=== PATIENT | female | born 1950 | race Caucasian/White ===

== ENCOUNTER → 2018-03-30 | Outpatient (CLI) | payer MEDICARE ==
[~2018-03-30] MED LIST: ACET-1966 PO; ACET500T68 PO; AMOX-559 PO; AZIT-18; GABA-549 PO; GLIM1TAB25; GLIM2TAB42 PO; HYDR2TAB74 PO; IBUP-56 PO; LEVO175T42; LEVO200T50 PO; LEVO25TA61 PO; LORA10CA3 PO; MELA3TAB31 PO; METF-411; METF-421 PO; NOR10 PO; PER PO; PRED20TA6 PO; PRIM50TA; RIV10 PO; SIMV-49 PO; VENL37.514 FT; [UNRECOGNIZED DRUG - OTHER] PO; oxygen
== END ==
LOC: RESP 20:09
PROVIDERS: ATTEND Family Medicine
DX: G47.33 Obstructive sleep apnea (adult) (pediatric) (principal); G47.61 Periodic limb movement disorder; G47.36 Sleep related hypoventilation in conditions classified elsewhere

== ENCOUNTER → 2018-08-23 | Outpatient (CLI) | payer MEDICARE ==
[~2018-08-23] MED LIST changes: -METF-411; -METF-421 PO; +METF-450; +METF-452 PO
--- NOTE | 2018-08-24 09:58 | RADIOLOGY IMAGING REPORT ---
FACILITY: [facility] [place] PATIENT NAME: SONAM IWLLIAMSON : [id number] MR: [id number] V: [id number] EXAM DATE: ORDERING PHYSICIAN: DELMY DAY TECHNOLOGIST: Lisa Kirby PROCEDURE:BILATERAL DIGITAL SCREENING MAMMOGRAM WITH CAD ASSISTED INTERPRETATION & 3D TOMOSYNTHESIS COMPARISON:Prior mammograms 07/27/17, 05/13/16, 05/12/15, 10/04/13, 09/28/12. INDICATIONS:SCREENING FINDINGS: The breasts are almost entirely fatty. The parenchymal pattern has remained stable allowing for difference in mammographic technique & patient positioning. DIAGNOSTIC CATEGORY 1--NEGATIVE. RECOMMENDATIONS: ROUTINE MAMMOGRAM AND CLINICAL EVALUATION. IMPRESSION: BIRADS 1: Negative. No significant abnormality is seen. Dictated by: Tiara Garcia M.D. on 08/23/2018 at 16:40 Transcribed by: ROMMEL on 08/24/2018 at 8:53 Approved by: Tiara Garcia M.D. on 08/24/2018 at 9:57 [facility]
== END ==
LOC: MAMO 00:19
PROVIDERS: ATTEND Family Medicine
DX: Z12.31 Encounter for screening mammogram for malignant neoplasm of breast (principal)
CPT/HCPCS: 77063; 77067

== ENCOUNTER → 2018-12-17 | Outpatient (CLI) | payer MEDICARE ==
--- NOTE | 2018-12-17 16:48 | EKG ---
FACILITY: [facility] PATIENT NAME: SONAM WILLIAMSON : [id number] MR: [id number] V: [id number] EXAM DATE: ORDERING PHYSICIAN: DELMY DAY TECHNOLOGIST: HAYDEE Lomeli Reason : CHEST TIGHTNESS Blood Pressure : / mmHG Vent. Rate : 074 BPM Atrial Rate : 074 BPM P-R Int : 126 ms QRS Dur : 098 ms QT Int : 382 ms P-R-T Axes : 054 055 028 degrees QTc Int : 424 ms Normal sinus rhythm with sinus arrhythmia Normal ECG Relatively unchanged from previous Confirmed by ZANA POLLACK ([id number]) on 12/17/2018 6:36:47 PM Referred By: SHAY Confirmed By:ZANA POLLACK
== END ==
LOC: RESP 16:08
PROVIDERS: ATTEND Family Medicine
DX: R07.89 Other chest pain (principal)
CPT/HCPCS: 93005

== ENCOUNTER → 2018-12-19 | Outpatient (CLI) | payer MEDICARE | LOC: US 00:44 | PROVIDERS: ATTEND Family Medicine | DX: I51.7 Cardiomegaly (principal); I34.0 Nonrheumatic mitral (valve) insufficiency; I35.1 Nonrheumatic aortic (valve) insufficiency; I37.1 Nonrheumatic pulmonary valve insufficiency | CPT/HCPCS: 93306 ==